=== PATIENT | female | born 2000 | race Caucasian/White ===

== ENCOUNTER 2024-01-24 07:00 | Outpatient (NON) | payer OTHER, SELFPAY | END 2024-01-24 07:01 | disposition home or self-care (01) | PROVIDERS: Visit Provider Internal Medicine Gastroenterology | DX: K51.90 Ulcerative colitis, unspecified, without complications (principal) | CPT/HCPCS: 88305 ==

== ENCOUNTER 2024-01-24 09:15 | Day surgery (SDC) | payer OTHER, SELFPAY ==
[2024-01-09 10:33] VITALS: BMI 35.8
--- NOTE | 2024-01-23 15:29 | WPDANESEPPF ---
Anes - Initial Pre Proc Eval Procedure: Operation Date: 01/24/24 12:00 Proposed Procedures p Diagnostic Colonoscopy - Jean Claude Hurt MD Date/Time: 01/23/24 15:29 Surgeon: Jean Claude Hurt MD Pre Op Diagnosis: Ulcerative Colitis Patient Data Age: 23 Gender: F Height: 1.83 m Weight: 117.3 kg Allergies Allergy/AdvReac Type Severity Reaction Status Date / Time No Known Allergies Allergy Verified 01/24/24 10:33 Home Medications Medication Instructions Recorded Confirmed Type Entyvio 01/19/24 History aripiprazole 5 mg tablet 5 mg PO DAILY 01/19/24 01/24/24 History Patient hx anesthesia problems: none Family hx anesthesia problems: none Results Review: All pre-operative results and documents have been reviewed as part of the pre-operative evaluation. [facility] Past Medical History Medical History Ulcerative colitis Social History Social History Smoking status: Never smoker Alcohol intake: never Alcohol use details: 2 per month Substance use type: does not use Anes - Eval Final PreProcedure Day of Procedure 01/23/24 15:29 Patient weight: obese Heart: regular rate and rhythm Lungs: clear to auscultation Airway: Mallampati scale class II Neurological: alert and oriented Last oral intake: >/= 8 hours ASA classification: II Emergent: no Anesthetic plan: proceed Anesthesia type and monitoring: general GIVS and standard monitoring Results Review: All pre-operative results and documents have been reviewed as part of the pre-operative evaluation. Informed Consent: The patient's anesthetic plan and its attendant risks and benefits were discussed with the patient/family/POA. Questions were solicited and answers provided to the satisfaction of the patient/family/POA.
--- NOTE | 2024-01-23 21:05 | PM.HPGS ---
History of Present Illness History of Present Illness Consent: Risks, benefits, and alternatives have been discussed and questions answered. Patient agrees to proceed with procedure. Chief complaint: Ulcerative Colitis Narrative: Vickie Friedman is a 23 year old female with chronic U.C with several recent flares, now on Bioogic, but with elevated Calprotectin. several months ago it was in the thousands. Now it is a little over 200. Review of Systems Review of Systems: All systems reviewed & are unremarkable except as noted in HPI and below PMFSH Past Medical History Medical History Ulcerative colitis Social History Social History Smoking status: Never smoker Alcohol intake: never Alcohol use details: 2 per month Substance use type: does not use Meds Home Medications and Allergies Home Medications Medication Instructions Recorded Confirmed Type Entyvio 01/19/24 History aripiprazole 5 mg tablet 5 mg PO DAILY 01/19/24 01/24/24 History Allergies Allergy/AdvReac Type Severity Reaction Status Date / Time No Known Allergies Allergy Verified 01/24/24 10:33 Exam Resp: Auscultation: clear to auscultation bilaterally Cardio: Rate: regular rate Rhythm: regular rhythm GI: GI Palp: Yes Soft to palpation and No Tenderness to palpation present (GI) Assessment and Plan Assessment and plan (1) Ulcerative colitis: Code(s): K51.90 - Ulcerative colitis, unspecified, without complications Status: Acute Assessment and Plan: Colonoscopy with possible biopsy or polypectomy or cautery or injection of substances.
[2024-01-24 10:43] VITALS: BMI 35.0
[2024-01-24 10:46] VITALS: BP 112/76; PULSE 93; RESP 16; TEMP 36.2; O2SAT 98
[2024-01-24] MEDS: LACTATED RINGERS 1,000 ML 150 ML IV CONT (10:54)
[2024-01-24 11:31] VITALS: BP 96/74; PULSE 80; RESP 16; O2SAT 100
[2024-01-24 11:41] VITALS: BP 104/71; PULSE 79; RESP 16; O2SAT 100
[2024-01-24 11:51] VITALS: BP 108/70; PULSE 77; RESP 16; O2SAT 100
--- NOTE | 2024-01-24 11:58 | WPDANESPN ---
Anes - Prog Note Post-Op Date/Time: 01/24/24 11:58 Cardiovascular status: normal Respiratory status: normal Airway patency: baseline Mental status: baseline Post-Op hydration status: normal Vital Signs: Last Vital Signs Temp 36.2 C L 01/24/24 10:46 Pulse 77 01/24/24 11:51 Resp 16 01/24/24 11:51 BP 108/70 01/24/24 11:51 Pulse Ox 100 01/24/24 11:51 O2 Del Method Room Air 01/24/24 11:51 Pain Score (VAS): 0 I/O: Intake & Output 01/23/24 01/24/24 01/24/24 23:59 07:59 15:59 Intake Total 150 Balance 150 Post-procedural complaints: none Patient Feedback: Patient satisfied with anesthetic care. Other Findings: Patient vital signs back to baseline. Patient denies nausea and vomiting. Patient's pain under control. Patient OK for discharge.
== END 2024-01-24 11:57 | disposition home or self-care (01) ==
PROVIDERS: Visit Provider Internal Medicine Gastroenterology
PROC: 0DJD8ZZ Inspection of Lower Intestinal Tract, Via Natural or Artificial Opening Endoscopic (ICD-10-PCS; CPT 45378; principal; 2024-01-24 12:00)
DX: K51.00 Ulcerative (chronic) pancolitis without complications (principal)
CPT/HCPCS: 45380